=== PATIENT | female | born 1960 | race American Indian/Alaskan Native ===

== ENCOUNTER 2018-05-06 10:41 | Inpatient (IN) | payer BC ==
[2018-05-06] MEDS ORDERED: TYLENOL PO ONE (11:35)
[2018-05-06] MEDS ORDERED: TYLENOL ONE (11:45)
[2018-05-06 12:15] LABS: Basophils % (Auto) 0.9 % (0.0-1.8); Eosinophils # (Auto) 0.1 K/mm3 (0.0-0.4); Eosinophils % (Auto) 1.6 % (0.0-4.3); Hematocrit 43.9 % (30.3-42.9); Hemoglobin 14.4 gm/dl (10.1-14.3); Lymphocytes # (Auto) 2.3 K/mm3 (1.2-5.4); Lymphocytes % (Auto) 42.1 % (13.4-35.0); Mean Corpuscular HGB Conc 33 % (30-34); Mean Corpuscular Hemoglobin 29 pg (28-32); Mean Corpuscular Volume 90 fl (79-97); Monocytes # (Auto) 0.5 K/mm3 (0.0-0.8); Monocytes % (Auto) 8.4 % (0.0-7.3); Platelet Count 132 K/mm3 (140-440); Red Cell Distribution Width 14.1 % (13.2-15.2)
[2018-05-06 12:22] LABS: INR 0.96 (0.87-1.13)
[2018-05-06 12:23] LABS: Partial Thromboplastin Time 26.1 Sec. (24.2-36.6)
[2018-05-06] MEDS ORDERED: ATIVAN PO ONE (12:24)
[2018-05-06] MEDS ORDERED: ZOFRAN ODT PO ONE (12:24)
[2018-05-06 12:31] LABS: BUN/Creatinine Ratio 13; Blood Urea Nitrogen 9 mg/dL (7-17); Calcium 8.5 mg/dL (8.4-10.2); Hemolysis Index 12
--- NOTE | 2018-05-06 13:26 | Emergency Department Report ---
ED Neuro Deficit HPI - General Chief Complaint: Neuro Symptoms/Deficit Stated Complaint: STROKE SYMPTOMS Time Seen by Provider: 05/06/18 11:10 Source: patient Mode of arrival: Ambulatory Limitations: No Limitations - History of Present Illness Initial Comments: The 7 year old female states that she was feeling fine when she went to sleep at 11:30 PM. She woke up at 4 AM and noticed that her face was asymmetrical and that order was coming out over the left side of her face. She also felt somewhat weak in her ocular area. She had some mild change in the sensation of her face as well. She stated that in route to the hospital she felt as though she had double vision for a few seconds to less than a minute. This resolved. She denied any headache. She denied any focal weakness or numbness of her upper or lower extremities. She was able to drive herself to the hospital and walk without difficulty. She denied any change in her visual acuity otherwise. She denied any difficulty in coordination. She has not had any recent problem with her left ear. She states she has not had symptoms like this before. She did not complain of difficulty with her speech contrary to the triage note which says "slowed speech". I suppose this may have been secondary to her facial weakness. At the time of my encounter the patient is totally lucid and speaking without difficulty. -: Last night (patient's last known well time is 11:30 PM yesterday) Location: left face Presenting Symptoms: Present: Weak/Paralyzed One Side History of same: No Place: home Severity: mild, moderate Quality: weak Improves With: none Worsens With: none On Anticoagulants: No Context: other (during the night) Associated Symptoms: denies other symptoms Treatments Prior to Arrival: none - Related Data Home Medications: Previous Rx's Medication Instructions Recorded Last Taken Type Cyclobenzaprine HCl [Flexeril 5 MG 5 mg PO TID PRN #21 tab 05/05/16 Unknown Rx TAB] Allergies/Adverse Reactions: Allergies Allergy/AdvReac Type Severity Reaction Status Date / Time aspirin AdvReac Unknown Verified 05/05/16 08:11 ED Review of Systems ROS: Stated complaint: STROKE SYMPTOMS Other details as noted in HPI Constitutional: denies: chills, fever Eyes: denies: eye pain, eye discharge, vision change ENT: denies: ear pain, throat pain Respiratory: denies: cough, shortness of breath, wheezing Cardiovascular: denies: chest pain, palpitations Endocrine: no symptoms reported Gastrointestinal: denies: abdominal pain, nausea, diarrhea Genitourinary: denies: urgency, dysuria, discharge Musculoskeletal: denies: back pain, joint swelling, arthralgia Skin: denies: rash, lesions Neurological: as per HPI, paresthesias. denies: headache, weakness, numbness Psychiatric: denies: anxiety, depression Hematological/Lymphatic: denies: easy bleeding, easy bruising ED Past Medical Hx - Past Medical History Hx Hypertension: Yes - Surgical History Past Surgical History?: Yes Additional Surgical History: hysterectomy - Social History Smoking Status: Current Every Day Smoker Substance Use Type: None - Medications Home Medications: Home Medications Medication Instructions Recorded Confirmed Last Taken Type Cyclobenzaprine HCl [Flexeril 5 MG 5 mg PO TID PRN #21 tab 05/05/16 Unknown Rx TAB] ED Neuro Physical Exam - General Limitations: No Limitations General appearance: alert, in no apparent distress Suspected Stroke: Yes (although Cohen's palsy is a possibility) - Head Head exam: Present: atraumatic, normocephalic - Eye Eye exam: Present: normal appearance, PERRL, EOMI. Absent: scleral icterus - ENT ENT exam: Present: mucous membranes moist, other (facial asymmetry noted) - Neck Neck exam: Present: normal inspection. Absent: tenderness, meningismus - Respiratory Respiratory exam: Present: normal lung sounds bilaterally. Absent: respiratory distress - Cardiovascular Cardiovascular Exam: Present: regular rate, normal rhythm. Absent: systolic murmur, diastolic murmur, rubs, gallop - GI/Abdominal GI/Abdominal exam: Present: soft, normal bowel sounds. Absent: distended, tenderness, guarding, rebound, rigid - Extremities Exam Extremities exam: Present: normal inspection - Back Exam Back exam: Present: normal inspection - Neurological Exam Neurological exam: Present: alert, oriented X3, normal gait. Absent: CN II-XII intact, motor sensory deficit - NIHSS Assessment Interval: Baseline 1a. Level of Consciousness: alert 1b. LOC Questions: answers correctly 1c. LOC Commands: performs tasks correctly 2. Best Gaze: normal 3. Visual: no visual loss 4. Facial Palsy: minor paralysis (there is slight weakness of the orbicularis oculi subjectively when I asked the patient. It is difficult to demonstrate on exam however) 5b. Motor Arm Right: no drift 5a. Motor Arm Left: no drift 6a. Motor Leg Left: no drift 6b. Motor Leg Right: no drift 7. Limb Ataxia: absent 8. Sensory: normal (no sensory loss although the patient does state there is subjective difference both sides of her face) 9. Best Language: no aphasia 10. Dysarthria: normal 11. Extinction/Inattention: no abnormality Total Score: 1 Stroke Severity: Minor Stroke - Psychiatric Psychiatric exam: Present: normal affect, normal mood - Skin Skin exam: Present: warm, dry, intact, normal color. Absent: rash ED Course Vital Signs 05/06/18 10:58 Pulse Rate 88 Respiratory 16 Rate Blood Pressure 169/86 [Right] O2 Sat by Pulse 98 Oximetry - Reevaluation(s) Reevaluation #1: Patient states that her "stomach hurts" when she takes aspirin. She will be given 2 baby aspirin. This is certainly not an allergy. 05/06/18 13:37 Reevaluation #2: Patient will be going to MRI/MRAs soon. She is in stable condition. She'll be admitted by Dr. Lackey to the hospitalist service. 05/06/18 13:38 - Lab Data Result diagrams: 05/06/18 11:56 05/06/18 11:56 Lab Results 05/06/18 05/06/18 05/06/18 Range/Units 10:50 11:40 11:56 WBC 5.5 (4.5-11.0) K/mm3 RBC 4.90 (3.65-5.03) M/mm3 Hgb 14.4 H (10.1-14.3) gm/dl Hct 43.9 H (30.3-42.9) % MCV 90 (79-97) fl MCH 29 (28-32) pg MCHC 33 (30-34) % RDW 14.1 (13.2-15.2) % Plt Count 132 L (140-440) K/mm3 Lymph % (Auto) 42.1 H (13.4-35.0) % [place]rill % (Auto) 8.4 H (0.0-7.3) % Eos % (Auto) 1.6 (0.0-4.3) % Baso % (Auto) 0.9 (0.0-1.8) % Lymph # 2.3 (1.2-5.4) K/mm3 [place]rill # 0.5 (0.0-0.8) K/mm3 Eos # 0.1 (0.0-0.4) K/mm3 Baso # 0.0 (0.0-0.1) K/mm3 Seg Neutrophils % 47.0 (40.0-70.0) % Seg Neutrophils # 2.6 (1.8-7.7) K/mm3 PT (12.2-14.9) Sec. INR (0.87-1.13) APTT (24.2-36.6) Sec. Thrombin Time (15.1-19.6) Sec. Sodium (137-145) mmol/L Potassium (3.6-5.0) mmol/L Chloride (98-107) mmol/L Carbon Dioxide (22-30) mmol/L Anion Gap mmol/L BUN (7-17) mg/dL Creatinine (0.7-1.2) mg/dL Estimated GFR ml/min BUN/Creatinine Ratio % Glucose (65-100) mg/dL POC Glucose 93 80 (70-105) Calcium (8.4-10.2) mg/dL Troponin T (0.00-0.029) ng/mL 05/06/18 05/06/18 05/06/18 Range/Units 11:56 11:56 11:56 WBC (4.5-11.0) K/mm3 RBC (3.65-5.03) M/mm3 Hgb (10.1-14.3) gm/dl Hct (30.3-42.9) % MCV (79-97) fl MCH (28-32) pg MCHC (30-34) % RDW (13.2-15.2) % Plt Count (140-440) K/mm3 Lymph % (Auto) (13.4-35.0) % [place]rill % (Auto) (0.0-7.3) % Eos % (Auto) (0.0-4.3) % Baso % (Auto) (0.0-1.8) % Lymph # (1.2-5.4) K/mm3 [place]rill # (0.0-0.8) K/mm3 Eos # (0.0-0.4) K/mm3 Baso # (0.0-0.1) K/mm3 Seg Neutrophils % (40.0-70.0) % Seg Neutrophils # (1.8-7.7) K/mm3 PT 13.3 (12.2-14.9) Sec. INR 0.96 (0.87-1.13) APTT 26.1 (24.2-36.6) Sec. Thrombin Time 17.5 (15.1-19.6) Sec. Sodium 145 (137-145) mmol/L Potassium 3.8 (3.6-5.0) mmol/L Chloride 107.9 H (98-107) mmol/L Carbon Dioxide 28 (22-30) mmol/L Anion Gap 13 mmol/L BUN 9 (7-17) mg/dL Creatinine 0.7 (0.7-1.2) mg/dL Estimated GFR > 60 ml/min BUN/Creatinine Ratio 13 % Glucose 90 (65-100) mg/dL POC Glucose (70-105) Calcium 8.5 (8.4-10.2) mg/dL Troponin T < 0.010 (0.00-0.029) ng/mL - EKG Data -: EKG Interpreted by Me EKG shows normal: sinus rhythm, axis, intervals, QRS complexes, ST-T waves Rate: normal Interpretation: no acute changes - Radiology Data interpreted by me: Discussed with Dr. Macedo. Basal ganglia calcifications. No acute process. Normal CT otherwise. - Thrombolytic Inclusion/Exclusion Thrombolytic Exclusion Criteria: Symptom Onset > 3 Hours (last known well time was 11:30 yesterday) Critical care attestation.: If time is entered above; I have spent that time in minutes in the direct care of this critically ill patient, excluding procedure time. ED Disposition Clinical Impression: CVA (cerebral vascular accident) Qualifiers: CVA mechanism: thrombosis Precerebral and cerebral artery: unspecified precerebral artery Qualified Code(s): I63.00 - Cerebral infarction due to thrombosis of unspecified precerebral artery Disposition: OP ADMIT IP TO THIS HOSP Is pt being admited?: Yes Does the pt Need Aspirin: Yes Condition: Stable Referrals: PRIMARY CARE, [Primary Care Provider] - 3-5 Days Time of Disposition: 14:05
[2018-05-06] MEDS ORDERED: BABY ASPIRIN PO ONE (13:37)
--- NOTE | 2018-05-06 14:12 | History and Physical Report ---
History of Present Illness Chief complaint: Im weak on my left side History of present illness: 57 YO Female with HTN, Nicotine Dependence, presents to ED for evaluation. Pt states that she was in her usual state of health at bedtime- which was 2330 hrs. Pt states that she awoke around 0400 hrs and was found to have Left sided facial droop as well as slurred speech, and blurred vision in her left eye, as well as headache. Pt drove herself to the hospital later in the morning. Pt seen and evaluated in ED and found to have symptoms of CVA. Pt admitted to telemetry and treated IAW stroke protocol. Pt is outside therapeutic window for TPA. Pt denies fever, chills, CP, Palpitations, NVD, Syncope, Trauma, unintentional weight loss, night sweats, or recent ill contacts. Past History Past Medical History: hypertension Past Surgical History: hysterectomy Social history: , smoking Family history: hypertension Medications and Allergies Allergies Allergy/AdvReac Type Severity Reaction Status Date / Time aspirin Allergy Nausea Verified 05/06/18 15:25 Home Medications Medication Instructions Recorded Confirmed Last Taken Type Cyclobenzaprine HCl [Flexeril 5 MG 5 mg PO TID PRN #21 tab 05/05/16 Unknown Rx TAB] Review of Systems Constitutional: no weight loss, no weight gain, no fever, no chills Ears, nose, mouth and throat: no ear pain, no ear discharge, no tinnitis, no decreased hearing, no nose pain, no nasal congestion, no nasal discharge Breasts: no change in shape, no swelling, no mass Cardiovascular: no chest pain, no orthopnea, no palpitations, no rapid/ irregular heart beat, no edema, no syncope Respiratory: no cough, no cough with sputum, no excessive sputum, no hemoptysis , no shortness of breath, no dyspnea on exertion Gastrointestinal: no nausea, no vomiting, no diarrhea, no constipation, no change in bowel habits Genitourinary Female: no pelvic pain, no flank pain, no menorrhagia, no dysuria , no urinary frequency, no urgency, no stress incontinence, no post void dribbling Rectal: no pain, no incontinence, no bleeding Musculoskeletal: no neck stiffness, no neck pain, no shooting arm pain, no arm numbness/tingling, no low back pain, no shooting leg pain Integumentary: no rash, no pruritis, no redness, no sores, no wounds, no jaundice Neurological: transient paralysis, weakness, headaches, change in speech, confusion, no numbness, no tingling, no seizures, no syncope, no tremors Psychiatric: no memory loss, no change in sleep habits, no sleep disturbances, no insomnia, no hypersomnia, no change in appetite, no change in libido Endocrine: no cold intolerance, no heat intolerance, no polyphagia, no excessive thirst, no polydipsia, no polyuria, no nocturia, no excessive sweating Hematologic/Lymphatic: no easy bruising, no easy bleeding, no lymphadenopathy, no lymphedema Allergic/Immunologic: no urticaria, no allergic rhinitis, no wheezing, no persistent infections, no anaphylaxis, no angioedema Exam - Constitutional Vitals: Temp Pulse Resp BP Pulse Ox 88 16 169/86 98 05/06/18 10:58 05/06/18 10:58 05/06/18 10:58 05/06/18 10:58 General appearance: Present: no acute distress, well-nourished - EENT Eyes: Present: PERRL ENT: hearing intact, clear oral mucosa - Neck Neck: Present: supple, normal ROM - Respiratory Respiratory effort: normal Respiratory: bilateral: CTA - Cardiovascular Heart Sounds: Present: S1 & S2. Absent: rub, click - Extremities Extremities: pulses symmetrical, No edema Peripheral Pulses: within normal limits - Abdominal General gastrointestinal: Present: soft, non-tender, non-distended, normal bowel sounds Female genitourinary: Present: normal - Integumentary Integumentary: Present: clear, warm, dry - Musculoskeletal Musculoskeletal: left sided weakness - Psychiatric Psychiatric: appropriate mood/affect, intact judgment & insight - Neurologic Neurologic: no CNII-XII intact, moves all extremities, no gait normal Results - Labs CBC & Chem 7: 05/06/18 11:56 05/06/18 11:56 Labs: Abnormal lab results 05/06/18 05/06/18 Range/Units 11:56 11:56 Hgb 14.4 H (10.1-14.3) gm/dl Hct 43.9 H (30.3-42.9) % Plt Count 132 L (140-440) K/mm3 Lymph % (Auto) 42.1 H (13.4-35.0) % Floyd % (Auto) 8.4 H (0.0-7.3) % Chloride 107.9 H (98-107) mmol/L Assessment and Plan - Patient Problems (1) CVA (cerebral vascular accident) Current Visit: Yes Status: Acute Qualifiers: CVA mechanism: thrombosis Precerebral and cerebral artery: middle cerebral artery Laterality of affected vessel: right Qualified Code(s): I63.311 - Cerebral infarction due to thrombosis of right middle cerebral artery Plan to address problem: Stroke protocol: Admit to telemetry, CT Head, Echo, EEG, MRI Brain, MRA Brain, Carotid doppler, Antiplatelet therapy, (2) Hemiparesis Current Visit: Yes Status: Acute (3) Nicotine dependence unspecified, with withdrawal Current Visit: Yes Status: Acute Qualifiers: Nicotine product type: cigarettes Qualified Code(s): F17.213 - Nicotine dependence, cigarettes, with withdrawal Plan to address problem: smoking cessation counseling, (4) HTN (hypertension) Current Visit: Yes Status: Acute Qualifiers: Hypertension type: essential hypertension Qualified Code(s): I10 - Essential (primary) hypertension Plan to address problem: monitor bp q shift, permissive hypertension overnight. (5) DVT prophylaxis Current Visit: Yes Status: Acute Plan to address problem: scd to BLE while in bed.
[2018-05-06] MEDS ORDERED: ZOFRAN IV PRN (14:17)
[2018-05-06] MEDS ORDERED: PHENERGAN PR PRN (14:17)
[2018-05-06] MEDS ORDERED: DULCOLAX PR PRN (14:17)
[2018-05-06] MEDS ORDERED: TYLENOL PO PRN (14:17)
[2018-05-06] MEDS ORDERED: SODIUM CHLORIDE FLUSH SYRINGE 10 ML IV PRN (14:17)
[2018-05-06] MEDS ORDERED: REGLAN PO PRN (14:17)
[2018-05-06] MEDS ORDERED: MILK OF MAGNESIA PO PRN (14:17)
[2018-05-06] MEDS ORDERED: NON-FORMULARY (Cyclobenzaprine Hcl [Flexeril 5 Mg Tab] 5 MG) PO PRN (14:19)
[2018-05-06] MEDS ORDERED: FLEXERIL PO PRN ×2 (14:23→15:00)
--- NOTE | 2018-05-06 16:09 | Cat Scan Report ---
FINAL REPORT EXAM: CT HEAD/BRAIN WO CON HISTORY: STROKE TECHNIQUE: Noncontrast CT axial images of the brain. PRIORS: None. FINDINGS: No parenchymal mass, mass effect, hemorrhage, midline shift or hydrocephalus. No evidence of acute cortical infarct. No abnormal, extra-axial fluid or air collection. Osseous calvarium grossly intact. IMPRESSION: 1. No acute intracranial findings.
--- NOTE | 2018-05-06 17:12 | Magnetic Resonance Report ---
FINAL REPORT EXAM: MR BRAIN WO CON HISTORY: L facial weakness TECHNIQUE: Multiplanar MRI of the brain. No contrast administered. PRIORS: CT brain of same date. FINDINGS: Brain volume is normal for age. Small focus of diffusion weighted bright signal and concomitant ADC dark signal in the right frontoparietal lopez-white matter junction. No other acute infarct seen on diffusion-weighted imaging. No parenchymal mass, mass-effect, hemorrhage, midline shift or hydrocephalus. No pathologic extra-axial fluid collection. No pineal region or sellar masses. No cerebellar tonsillar herniation. IMPRESSION: 1. Findings compatible with small focus of restricted diffusion indicative of acute ischemic change in the right frontoparietal lopez-white matter junction. 2. No other acute intracranial findings.
--- NOTE | 2018-05-06 17:29 | Magnetic Resonance Report ---
FINAL REPORT EXAM: MR MRA/MRV HEAD WO CON HISTORY: L facial weakness TECHNIQUE: Multiplanar MRA of [place]. No contrast administered. PRIORS: None. FINDINGS: Markedly diminutive A1 segment of left GREGOR may be congenital or acquired. Otherwise, normal flow related enhancement in the basilar and bilateral internal carotid arteries and their main intracranial branches. No abnormal aneurysmal dilatation, other focal signal dropout or signal void to suggest significant stenosis or apparent occlusion. IMPRESSION: 1. Possible variant anatomy involving A1 segment of left GREGOR. 2. No other significant findings.
[2018-05-06] MEDS: FIORICET PO PRN (21:56)
[2018-05-07] MEDS: FIORICET PO PRN ×3 (05:55→22:43)
[2018-05-07 07:06] LABS: Chol/HDL Ratio 2.42 %
--- NOTE | 2018-05-07 09:38 | Progress Note ---
Assessment and Plan Assessment and plan: Acute CVA. Continue stroke protocol. Patient will be monitored on telemetry. Follow-up echocardiogram, MRI/MRA brain and carotid Dopplers. Consider EEG. Neurology consultation pending. Hypertension. Continue antihypertensive medications. Patient with permissive hypertension overnight.\ Tobacco abuse. Smoking cessation counseling completed. Nicotine patch. Left hemiparesis. PT/OT. History Interval history: No new issues overnight. Hospitalist Physical - Constitutional Vitals: Temp Pulse Resp BP Pulse Ox 97.8 F 61 20 111/67 97 05/07/18 06:13 05/07/18 06:13 05/07/18 06:13 05/07/18 06:13 05/07/18 06:13 General appearance: Present: no acute distress, well-nourished - EENT Eyes: Present: PERRL, EOM intact ENT: hearing intact, clear oral mucosa, dentition normal - Neck Neck: Present: supple, normal ROM - Respiratory Respiratory effort: normal Respiratory: bilateral: CTA - Cardiovascular Rhythm: regular Heart Sounds: Present: S1 & S2. Absent: gallop, rub - Extremities Extremities: no ischemia, No edema, Full ROM - Abdominal General gastrointestinal: soft, non-tender, non-distended, normal bowel sounds - Integumentary Integumentary: Present: clear, warm, dry - Neurologic Neurologic: CNII-XII intact, moves all extremities Results - Labs CBC & Chem 7: 05/06/18 11:56 05/06/18 11:56 Labs: Laboratory Last Values WBC 5.5 K/mm3 (4.5-11.0) 05/06/18 11:56 RBC 4.90 M/mm3 (3.65-5.03) 05/06/18 11:56 Hgb 14.4 gm/dl (10.1-14.3) H 05/06/18 11:56 Hct 43.9 % (30.3-42.9) H 05/06/18 11:56 MCV 90 fl (79-97) 05/06/18 11:56 MCH 29 pg (28-32) 05/06/18 11:56 MCHC 33 % (30-34) 05/06/18 11:56 RDW 14.1 % (13.2-15.2) 05/06/18 11:56 Plt Count 132 K/mm3 (140-440) L 05/06/18 11:56 Lymph % (Auto) 42.1 % (13.4-35.0) H 05/06/18 11:56 [place] % (Auto) 8.4 % (0.0-7.3) H 05/06/18 11:56 Eos % (Auto) 1.6 % (0.0-4.3) 05/06/18 11:56 Baso % (Auto) 0.9 % (0.0-1.8) 05/06/18 11:56 Lymph # 2.3 K/mm3 (1.2-5.4) 05/06/18 11:56 [place] # 0.5 K/mm3 (0.0-0.8) 05/06/18 11:56 Eos # 0.1 K/mm3 (0.0-0.4) 05/06/18 11:56 Baso # 0.0 K/mm3 (0.0-0.1) 05/06/18 11:56 Seg Neutrophils % 47.0 % (40.0-70.0) 05/06/18 11:56 Seg Neutrophils # 2.6 K/mm3 (1.8-7.7) 05/06/18 11:56 PT 13.3 Sec. (12.2-14.9) 05/06/18 11:56 INR 0.96 (0.87-1.13) 05/06/18 11:56 APTT 26.1 Sec. (24.2-36.6) 05/06/18 11:56 Thrombin Time 17.5 Sec. (15.1-19.6) 05/06/18 11:56 Sodium 145 mmol/L (137-145) 05/06/18 11:56 Potassium 3.8 mmol/L (3.6-5.0) 05/06/18 11:56 Chloride 107.9 mmol/L (98-107) H 05/06/18 11:56 Carbon Dioxide 28 mmol/L (22-30) 05/06/18 11:56 Anion Gap 13 mmol/L 05/06/18 11:56 BUN 9 mg/dL (7-17) 05/06/18 11:56 Creatinine 0.7 mg/dL (0.7-1.2) 05/06/18 11:56 Estimated GFR > 60 ml/min 05/06/18 11:56 BUN/Creatinine Ratio 13 % 05/06/18 11:56 Glucose 90 mg/dL (65-100) 05/06/18 11:56 POC Glucose 80 (70-105) 05/06/18 11:40 Calcium 8.5 mg/dL (8.4-10.2) 05/06/18 11:56 Troponin T < 0.010 ng/mL (0.00-0.029) 05/06/18 11:56 Triglycerides 101 mg/dL (2-149) 05/07/18 05:06 Cholesterol 155 mg/dL (50-199) 05/07/18 05:06 LDL Cholesterol Direct 83 mg/dL (50-130) 05/07/18 05:06 HDL Cholesterol 64 mg/dL (40-59) H 05/07/18 05:06 Cholesterol/HDL Ratio 2.42 % 05/07/18 05:06
[2018-05-07] MEDS ORDERED: PNEUMOVAX 23 IM ONE (12:00)
[2018-05-07] MEDS ORDERED: Fluarix Quad 2017-2018(36 MOS+ IM ONE (12:00)
--- NOTE | 2018-05-07 18:57 | Consultation ---
History of Present Illness Consult date: 05/07/18 Requesting physician: POLA HOOD Reason for Consult: stroke Chief complaint: stroke History of present illness: This 57-year-old right-handed -Vincentian female on Thursday morning awoke at 4 AM and noted she was spilling water out of the left side of her mouth when she drank. At 9 AM she developed slurred speech and says she was saying the wrong words and had some vertical diplopia. Yesterday she had still some diplopia but that is gone today and her face is back to normal. She was a little lightheaded yesterday but is okay today. She has an occipital headache on the left and left frontal more than right frontal headache with some nausea last night but no nausea today. She takes Fioricet for chronic headache. She thinks topiramate in the past did not help but has never been on Depakote or Keppra for headaches. Past History Past Medical History: hypertension, hyperlipidemia, other (depression and PTSD. 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 denies: smoking (no smoking since August), alcohol abuse, prescription drug abuse, IV drug use (never illicit) Family history: diabetes (maternal aunt), hypertension (both parents, 3 brothers and a sister), stroke (mother), other (in a brother who is HIV positive ) Medications and Allergies Allergies Allergy/AdvReac Type Severity Reaction Status Date / Time aspirin Allergy Nausea Verified 05/06/18 15:25 Home Medications Medication Instructions Recorded Confirmed Last Taken Type Cyclobenzaprine HCl [Flexeril 5 MG 5 mg PO TID PRN #21 tab 05/05/16 Unknown Rx TAB] Active Meds: Active Medications Acetaminophen (Tylenol) 650 mg PO Q4H PRN PRN Reason: Pain, Mild (1-3) Last Admin: 05/06/18 15:42 Dose: 650 mg Acetaminophen/Butalbital/Caffeine (Fioricet) 2 tab PO Q8H PRN PRN Reason: Headache Last Admin: 05/07/18 14:52 Dose: 2 tab Atorvastatin Calcium (Lipitor) 40 mg PO QHS MOSHE Bisacodyl (Dulcolax) 10 mg NJ QDAY PRN PRN Reason: Constipation Cyclobenzaprine HCl (Flexeril) 5 mg PO TID PRN PRN Reason: Muscle Spasm Magnesium Hydroxide (Milk Of Magnesia) 30 ml PO Q4H PRN PRN Reason: Constipation Metoclopramide HCl (Reglan) 10 mg PO Q6H PRN PRN Reason: Nausea And Vomiting Ondansetron HCl (Zofran) 4 mg IV Q8H PRN PRN Reason: N/V unrelieved by Reglan Promethazine HCl (Phenergan) 25 mg NJ Q6H PRN PRN Reason: Nausea And Vomiting Sodium Chloride (Sodium Chloride Flush Syringe 10 Ml) 10 ml IV PRN PRN PRN Reason: LINE FLUSH Review of Systems All systems: negative (daily headaches without aura, sometimes with nausea and even vomiting for which she takes F[facility]icet prescribed by the [facility], has tried Zomig which does not help. Lightheaded at times. Has sleep apnea but needs a new CPAP machine. Has tried 3 or 4 melatonin to help her fall asleep in the past but is not taking it currently. Some short-term memory difficulties the past 2 or 3 years. Remote memory is intact. Twitching of the left side of her face intermittently for the past 2 years.) Physical Examination - Vital Signs Vital Signs: Vital Signs Pulse Resp BP Pulse Ox 88 16 169/86 98 05/06/18 10:58 05/06/18 10:58 05/06/18 10:58 05/06/18 10:58 - Physical Exam Narrative exam: General Appearance: well developed but overweight (per BMI) late 50s - Vincentian female in NAD. HEENT: atraumatic, normocephalic; no bruits, 2+ Mat without soreness or induration or enlargement, sclerae nonicteric. Oropharynx pink and moist. No TMJ click but was told she had a TMJ problem that could have given her the twitching, no TMJ or sinus soreness to pressure or percussion. Says she grinds her teeth presumably in sleep. Neck: supple, no bruits. Heart: no murmur or extra sounds. Extremities: no clubbing, cyanosis or edema. 1+ dorsalis pedis pulses bilaterally. Neurologic Exam: Mental Status: Awake, alert, oriented X 3, speech is clear, names pen and ballpoint of pen, and abstracts well. 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 Cranial Nerves: carlson full, no papilledema, SVPs present, PERRLA, EOMs full without nystagmus or diplopia, facial sensation intact to pinprick and light touch, minimal left facial weakness, Arana is midline, palate rises symmetrically to phonation and gags are positive, shoulder shrug is 5 X 2, tongue protrudes midline. Cerebellar: finger to nose is intact, tandem requires some wall support but is not wide based. Sensory: decreased to light touch in left arm, pinprick and vibrations are intact. Double simultaneous stimulation is intact. Motor Exam Upper Extremities: no drift or pronation, Uriel intact. Director Heart are 5 X 2, tone is normal. No atrophy or fasciculations are noted visually. Motor Exam Lower Extremities: walks well on heels and toes but hops somewhat poorly on both sides. Uriel intact. Tone is normal. No atrophy or fasciculations are noted visually. Reflexes: Palmomental, snout and jaw jerk are negative. Triceps, biceps and brachioradialis are 1+ bilaterally. Lori's is negative bilaterally. Knee jerks are 1 and ankle jerks are 0 bilaterally remaining 0 on the right and becoming trace on the left with reinforcement and without clonus. Toes are upgoing right and downgoing left to Babinski testing. - Assessment Assessment Interval: Baseline - Level of Consciousness 1a. Level of Consciousness: alert - LOC Questions 1b. LOC Questions: answers correctly - LOC Command 1c. LOC Commands: performs tasks correctly - Best Gaze 2. Best Gaze: normal - Visual 3. Visual: no visual loss - Facial Palsy 4. Facial Palsy: minor paralysis (there is slight weakness of the orbicularis oculi subjectively when I asked the patient. It is difficult to demonstrate on exam however) - Motor Arm 5b. Motor Arm Right: no drift - Motor Leg 6a. Motor Leg Left: no drift - Limb Ataxia 7. Limb Ataxia: absent - Sensory 8. Sensory: normal (no sensory loss although the patient does state there is subjective difference both sides of her face) - Best Language 9. Best Language: no aphasia - Dysarthria 10. Dysarthria: normal - Extinction and Inattention 11. Extinction/Inattention: no abnormality Results - Laboratory Findings CBC and BMP: 05/06/18 11:56 05/06/18 11:56 Abnormal Lab Findings: Abnormal Labs 05/06/18 05/06/18 05/07/18 11:56 11:56 05:06 Hgb 14.4 H Hct 43.9 H Plt Count 132 L Lymph % (Auto) 42.1 H [place] % (Auto) 8.4 H Chloride 107.9 H HDL Cholesterol 64 H Assessment and Plan Impression: 1. Lacunar stroke 2. Sleep apnea 3. Common migraine, intractable 4. Hemifacial spasm Plan: 1. I showed her MRI images of her stroke including a possible slightly earlier one posterior to the fourth ventricle on diffusion which does not show up on ADC suggesting it is a little older than the one in the right mid frontal juxtacortical area where ADC dropout is seen. I reviewed her MRA though not with her, showing only normal variation with no connection of left GREGOR from left ICA (unilateral supply to GREGOR from the right instead). 2. Echo with bubbles is pending. 3. I ordered a neck CT angiogram for completeness. 4. Should get 30 day event monitoring as outpatient for possible paroxysmal PAF. 5. Memory labs ordered including vitamin D 25 hydroxy and hemoglobin A1c. Additional stroke labs ordered. 6. I gave her print out of instructions for trying melatonin for headache prevention, followed by vitamin B2 if melatonin does not work. 7. I listed [email or web address] as a website she could look into for a dental device for sleep apnea that does not require a CPAP machine. I emphasized that untreated sleep apnea can lead to strokes as well as hypertension, heart disease and memory problems. 8. Though not discussed, hemifacial spasm could be treated with Botox. 50 minutes spent including review of MRI images with her showing her strokes and discussion of need for additional tests including memory labs and stroke labs, use of melatonin or vitamin B2 and importance of treating sleep apnea. Thank you for an interesting consultation on this pleasant late 50s lady. Signing off, call for any questions.
[2018-05-07] MEDS ORDERED: NORCO 10/325 PO PRN (21:48)
[2018-05-07] MEDS: HCTZ PO SCH (22:44)
[2018-05-08] MEDS: celeXA PO SCH ×3 (02:27→11:09)
--- NOTE | 2018-05-08 08:16 | Discharge Summary ---
Providers - Providers Date of Admission: 05/06/18 14:17 Date of discharge: 05/08/18 Attending physician: POLA HOOD 05/06/18 14:17 Occupational Therapy Evaluate and Treat [CONS] Routine Comment: Reason For Exam: Neuro deficits Physical Therapy Evaluation and Treat [CONS] Routine Comment: Reason For Exam: Neuro deficits 05/07/18 08:40 Consult to Physician [CONS] Routine Comment: Consulting Provider: FERN VALENCIA Physician Instructions: Reason For Exam: CVA Primary care physician: ANESTHETIST Hospitalization Reason for admission: cva Condition: Stable Hospital course: This 57-year-old right-handed -Pakistani female on Thursday morning awoke at 4 AM and noted she was spilling water out of the left side of her mouth when she drank. At 9 AM she developed slurred speech and says she was saying the wrong words and had some vertical diplopia. , she had still some diplopia but that was gone by Thursday and her face is back to normal. The patient was admitted with diagnosis of acute lacunar CVA and intractable, migraine with hemifacial spasm. The patient was seen by neurology in consultation. MRI revealed small focus indicative of acute ischemic change in the right frontal parietal lopez-white matter junction. MRA revealed variant anatomy involving A1 segment of the left GREGOR but no other significant findings. CT angiogram of the neck and Echocardiogram with bubbles is pending. After the completion patient will be discharged home. The patient Should get 30 day event monitoring as outpatient for possible paroxysmal PAF per neurology recommendations. Neurology gave her print out of instructions for trying melatonin for headache prevention, followed by vitamin B2 if melatonin does not work and listed [email or web address] as a website she could look into for a dental device for sleep apnea that does not require a CPAP machine. Neurology emphasized that untreated sleep apnea can lead to strokes as well as hypertension, heart disease and memory problems. The patient was also seen by physical therapy in consultation who recommended outpatient PT. The patient will be discharged on Lipitor and Plavix given aspirin allergy. Dedicated discharge time 34 minutes. Disposition: - TO HOME OR SELFCARE Time spent for discharge: 34 - Discharge Diagnoses (1) CVA (cerebral vascular accident) Status: Acute Qualifiers: CVA mechanism: thrombosis Precerebral and cerebral artery: middle cerebral artery Laterality of affected vessel: right Qualified Code(s): I63.311 - Cerebral infarction due to thrombosis of right middle cerebral artery (2) DVT prophylaxis Status: Acute (3) HTN (hypertension) Status: Acute Qualifiers: Hypertension type: essential hypertension Qualified Code(s): I10 - Essential (primary) hypertension (4) Hemiparesis Status: Acute (5) Nicotine dependence unspecified, with withdrawal Status: Acute Qualifiers: Nicotine product type: cigarettes Qualified Code(s): F17.213 - Nicotine dependence, cigarettes, with withdrawal Core Measure Documentation - Palliative Care Palliative Care/ Comfort Measures: Not Applicable - Core Measures Any of the following diagnoses?: stroke - Stroke Discharge Requirements Statin for LDL = or >70 mg/dl on DC: Yes Anticoag for atrial fib/atrial flutter: Not Applicable Antithrombotic for ischemic stroke: Yes Exam - Constitutional Vitals: Temp Pulse Resp BP Pulse Ox 97.9 F 60 16 117/43 97 05/08/18 08:03 05/08/18 08:03 05/08/18 08:03 05/08/18 08:03 05/08/18 08:03 General appearance: Present: no acute distress, well-nourished - EENT Eyes: Present: PERRL ENT: hearing intact, clear oral mucosa - Neck Neck: Present: supple, normal ROM - Respiratory Respiratory effort: normal Respiratory: bilateral: CTA - Cardiovascular Heart Sounds: Present: S1 & S2. Absent: rub, click - Extremities Extremities: pulses symmetrical, No edema Peripheral Pulses: within normal limits - Abdominal General gastrointestinal: Present: soft, non-tender, non-distended, normal bowel sounds Female genitourinary: Present: normal - Integumentary Integumentary: Present: clear, warm, dry - Musculoskeletal Musculoskeletal: gait normal, strength equal bilaterally - Psychiatric Psychiatric: appropriate mood/affect, intact judgment & insight - Neurologic Neurologic: CNII-XII intact, moves all extremities Plan Activity: advance as tolerated Weight Bearing Status: Full Weight Bearing Diet: low fat, low cholesterol, low salt Special Instructions: home health RN Follow up with: PRIMARY CARE, [Primary Care Provider] - 3-5 Days Prescriptions: ALBUTEROL Inhaler [ProAir HFA Inhaler] 90 mcg IH BID PRN #30 inha PRN Reason: Shortness Of Breath Amlodipine Besylate [Norvasc] 10 mg PO DAILY #30 tablet AtorvaSTATin [Lipitor] 40 mg PO QHS #30 tablet Budesoni/Formoterol 80-4.5(Nf) [Symbicort 80-4.5 (Nf)] 2 puff IH BID #30 inha Bupropion HCl [Wellbutrin Xl] 300 mg PO DAILY #30 tab.er.24h Butalb/Acetamin/Caff 50-325-40 [Fioricet] 40 mg PO Q8HR PRN #30 tablet PRN Reason: Headache Cetirizine HCl [Allergy Relief] 10 mg PO DAILY #30 tablet Citalopram Hydrobromide [Celexa] 40 mg PO DAILY #30 tablet Clopidogrel Bisulfate [Plavix] 75 mg PO DAILY #30 tablet Cyclobenzaprine HCl [Flexeril 5 MG TAB] 5 mg PO TID PRN #21 tab PRN Reason: Muscle Spasm Fluticasone [Flonase] 1 spray NS QDAY #30 bottle Hydrochlorothiazide [HCTZ] 2 mg PO DAILY #30 tablet HYDROcodone/ACETAMINOPHEN [Hydrocodon-Acetaminophn 10-325] 325 mg PO Q8H PRN # 10 tablet PRN Reason: Pain , Severe (7-10) Ranitidine HCl [Zantac 150 MG TAB] 150 mg PO DAILY #30 tablet
[2018-05-08] MEDS: HCTZ PO SCH ×2 (11:05→11:10)
[2018-05-08] MEDS: FIORICET PO PRN (12:04)
[2018-05-08 12:32] VITALS: BP 130/74
--- NOTE | 2018-05-11 07:59 | Cat Scan Report ---
FINAL REPORT EXAM: CT ANGIO NECK HISTORY: stroke TECHNIQUE: A CT angiogram was obtained of the arteries in the neck following the intravenous injection of 100 cc of Omnipaque 350. 3D reformations were reviewed also. FINDINGS: Both common carotid arteries are widely patent with normal bifurcation into the internal and external carotid arteries bilaterally. Both vertebral arteries are widely patent and are codominant. There is no evidence of arterial stenosis or dissection. The soft tissues of the neck show no evidence of neoplastic or inflammatory changes. The thyroid gland reveals a 4 mm low-density focus in the left thyroid lobe. The airway appears normal. The prevertebral soft tissues appear normal. The sinuses reveal mucosal thickening the right max sinus. The skeletal structures reveal arthritic changes in the cervical spine IMPRESSION: Normal CT angiogram of the common carotid, internal carotid and vertebral arteries as described. No acute process in the neck. 4 mm low-density focus in the left thyroid lobe. Further evaluation is recommended with outpatient thyroid sonography.
== END 2018-05-08 12:10 | disposition home health service (06) | DRG 65 ==
LOC: ED 10:41 → 4A 14:17
PROVIDERS: ADMIT Internal Medicine; ATTEND Hospitalist
PROC: 3E0234Z Introduction of Serum, Toxoid and Vaccine into Muscle, Percutaneous Approach (ICD-10-PCS; principal; 2018-05-07)
DX: I63.9 Cerebral infarction, unspecified (principal); F17.213 Nicotine dependence, cigarettes, with withdrawal; G81.94 Hemiplegia, unspecified affecting left nondominant side; I10 Essential (primary) hypertension; G47.30 Sleep apnea, unspecified; G43.011 Migraine without aura, intractable, with status migrainosus; G51.3 Clonic hemifacial spasm; F32.9 Major depressive disorder, single episode, unspecified; Z90.710 Acquired absence of both cervix and uterus; Z83.3 Family history of diabetes mellitus; Z82.49 Family history of ischemic heart disease and other diseases of the circulatory system; Z82.3 Family history of stroke; Z88.6 Allergy status to analgesic agent; Z71.6 Tobacco abuse counseling; Z23 Encounter for immunization
CPT/HCPCS: 36415; 70450; 70498; 70544; 70551; 80048; 80061; 82306; 82607; 82747; 82962; 83036; 83516; 84425; 84439; 84443; 84484; 85025; 85210; 85301; 85305; 85610; 85613; 85670; 85730; 86147; 90686; 90732; 93005; 93010; 93306; A9270-GY; Q0162; Q9967